=== PATIENT | male | born 1980 | race African-American/Black ===

== ENCOUNTER 2018-02-17 18:04 | Inpatient (IN) | payer MEDICARE, MEDICAID ==
[~2018-02-17 18:04] MED LIST: ISOVUE-370 76%-LOCM 1 ML ONE
--- NOTE | 2018-02-17 20:00 | PDOC.FPRHP ---
- History of Present Illness Chief Complaint: right cheek swelling History of Present Illness: 37 yo male with a pmhx of htn presents with a 2 day hx of right cheek/mandible pain and swelling. He said he woke 2 days ago and noticed pain in his cheek and over the course of two days the pain and swelling has worsened. He also notes fever to 104. He denies any new medications and doesn't think he was stung by anything. He does endorse having cavities. He doesn't have dental insurance. - Allergies/Adverse Reactions Allergies Allergy/AdvReac Type Severity Reaction Status Date / Time No Known Allergies Allergy Verified 02/17/18 19:46 - Home Medications Medication Instructions Recorded Confirmed Type Amoxicillin 500 mg PO TID 02/17/18 02/17/18 History Amoxicillin/Potassium Clav 1 tab PO Q12HR 02/17/18 02/17/18 History [Amox-Clav 875-125 mg Tablet] Lisinopril/Hydrochlorothiazide 1 tab PO QAM 02/17/18 02/17/18 History [Lisinopril-Hctz 10-12.5 mg Tab] Sertraline HCl 75 mg PO QAM 02/17/18 02/17/18 History traMADol HCl [Tramadol HCl] 50 mg PO Q4HR PRN 02/17/18 02/17/18 History traZODone HCl [Trazodone HCl] 75 mg PO QPM 02/17/18 02/17/18 History - History PMHx: HTN, depression, tobacco abuse, insomnia PSHx: none FHx: mom and dad have diabetes and hypertension Social: smoked 1pp; has smoked on and off for 15 years. - Review of Systems General: reports: fever/chills. denies: weight/appetite/sleep changes, night sweats, fatigue ENT: reports: other (right mandibular pain and swelling). denies: nasal congestion, rhinorrhea Respiratory: denies: cough Cardiovascular: denies: chest pain, palpitation, edema, paroxysmal nocturnal dyspnea, orthopnea Gastrointestinal: denies: nausea, vomiting, diarrhea, constipation, abdominal pain Genitourinary: denies: incontinence, dysuria Skin: reports: lesions (right cheek). denies: rashes, jaundice, itching Musculoskeletal: reports: pain, tenderness (right cheek) Neurological: denies: numbness, syncope, seizure, weakness Psychological: denies: anxiety, depression - Vital signs BP: HR: 74 RR: 18 Tmax: 98.5 Pox: 95% on RA Wt: 94kg - Physical Exam Constitutional: NAD, awake, alert and oriented, well developed HEENT: normocephalic and atraumatic, PERRLA, EOMI, grossly normal hearing, other (poor dentition; swelling of right cheek/mandible; tender to palpation) Neck: supple, no JVD, no thyromegaly Heart: RRR, normal S1/S2, no murmurs/rubs/gallops, pulses present, no edema Lungs: CTAB, no respiratory distress, good air movement, no rales/rhonchi, no wheezing, no retractions Abdomen: soft, non-tender, bowel sounds present, no masses/distention Musculoskeletal: normal structure, normal tone Neurological: no focal deficit, normal sensation Skin: good turgor, capillary refill <2 seconds Heme/Lymphatic: no purpura, no petechia Psychiatric: normal mood and affect FMR H&P: Results - Labs Result Diagrams: 02/17/18 22:06 02/17/18 22:06 - EKG Interpretation EKG: NSR FMR H&P: A/P - Problem List (1) Dental abscess Current Visit: Yes Status: Acute Code(s): K04.7 - PERIAPICAL ABSCESS WITHOUT SINUS (2) HTN (hypertension) Current Visit: Yes Status: Acute Code(s): I10 - ESSENTIAL (PRIMARY) HYPERTENSION (3) Depression Current Visit: Yes Status: Acute Code(s): F32.9 - MAJOR DEPRESSIVE DISORDER , SINGLE EPISODE, UNSPECIFIED (4) Insomnia Current Visit: Yes Status: Acute Code(s): G47.00 - INSOMNIA, UNSPECIFIED (5) Tobacco abuse Current Visit: Yes Status: Acute Code(s): Z72.0 - TOBACCO USE - Plan 37 yo male with pmhx of htn presents with a 2 day hx of facial pain and swelling in his right mandibular region, admitted for a dental abscess. 1.)Dental Abscess-Mr. Pickett was admitted to inpatient medical. He was provided with morphine and toradol prn pain. A facial CT with contrast was ordered. CBC, BMP and blood cultures were drawn. We started him on empiric vanc and zosyn for coverage (IV) as he is having difficulty opening his mouth. [facility] was consulted who reviewed the CT imaging and stated that he could follow-up with the patient in their clinic in the am. However, he doesn't have insurance, so we need to make sure [facility] will see him in their clinic. 2.)HTN, controlled. We will hold his home meds until he is better able to swallow. 3.)Depression, controlled. We will hold his home medications until he is more comfortable swallowing. 4.)Insomnia, controlled. We will hold for now until he is able to swallow better. FMR H&P: Upper Level - Plan Date/Time: 02/17/181957 IJoanne, PGY3, have evaluated this patient and agree with findings/plan as outlined by research intern resident. Pertinent changes/additions are listed here. This is a 37yo M w/ PMH multiple dental caries and HTN, presents w/ 2 day history of R cheek/jaw pain, fevers, chills, nausea. He states that he was suppose to get dental work done, however due to insurance, he hasn't been able to get in. Now having difficulty opening his jaw fully due to pain and swelling of cheek. Hasn't eaten anything today due to pain and swelling. Denies any SOB, difficulty swallowing, or any concerns of his airway. He was sent to the hospital after he saw his PCP and was directly admitted to [facility] for IV Antibiotics. He states that he had all of his vaccines as a child. PE: GEN: AOx4 in no acute distress. HEENT: multiple dental caries down to mandible and maxillary bone. Swelling and warmth R mandible, and mild swelling along R neck region. CV: RRR. No murmur. Resp: CTA bilaterally Abd: Non-tender to palpation A/P: 1) Dental abscess with concern for cellulitis and possible parotodits - IV Vancomycin and Zosyn, CT scan face and neck. NPo @ midnight. Consult [facility] in am pending what the CT scan results. Blood cx, CBC, CMP, amylase, Mump titers. 2) HTN - Labetolol IV, Hydralazine PRN. Hold home meds until more comfortable swallowing 3) Insomnia - Will hold Trazedone until more comfortable swallowing. 4) Depression - Hold Sertraline until more comfortable swallowing. Attending Addendum - Attending Addendum Date/Time: 02/17/18 [id number] I personally evaluated the patient and discussed the management with Dr. Catarino Cain on 02/17/18. I agree with the History, Examination, Assessment and Plan documented above with any addition or exceptions noted below. Patient with large mandibular dental abscess. Briefly discussed case with [facility] , they recommend pain control and treatment overnight with possible discharge home tomorrow for outpatient follow up. Transition to PO Augmentin in the morning.
[2018-02-17] MEDS ORDERED: Ondansetron HCl/PF 4 MG/2 ML Vial IVP PRN (20:36)
[2018-02-17] MEDS ORDERED: Mag-Al 1200 mg/1200 mg/30 ML UDCUP PO PRN (20:36)
[2018-02-17] MEDS ORDERED: Morphine 5 MG/ML SYRINGE SLOW IVP PRN (20:43)
[2018-02-17] MEDS ORDERED: Acetaminophen 650 MG in Premix Bag 1 BAG IVPB PRN (20:43)
[2018-02-17] MEDS ORDERED: cefTRIAXone\\ROCEPHIN 1 GM, Syringe 0.4 ML in Sterile Water 9.6 ML SLOW IVP SCH (21:00)
[2018-02-17] MEDS ORDERED: Vancomycin HCl 1 GM in Premix Bag 1 BAG IVPB SCH (21:00)
[2018-02-17] MEDS ORDERED: Clindamycin/D5W 600 MG in Premix Bag 1 BAG IVPB SCH (21:00)
[2018-02-17 21:14] VITALS: BMI 25.7
[2018-02-17] MEDS ORDERED: Lidocaine 2% Viscous Solution 20 ML, Aluminum & Magnesium Hydroxide 30 ML, Donnatal Eli... SSW SCH ×3 (21:30)
[2018-02-17] MEDS ORDERED: Morphine 5 MG/ML SYRINGE SLOW IVP SCH (21:30)
[2018-02-17] MEDS ORDERED: Nicotine 21 MG PATCH TD SCH (22:00)
[2018-02-17] MEDS: Sodium Chloride 0.9% 1,000 ML IV SCH (22:12)
[2018-02-17 22:19] LABS: #Eosinphils 0.1 thou/uL (0.0-0.7); #Lymphocytes 2.5 thou/uL (1.20-3.40); #Monocytes 0.9 thou/uL (0.11-0.59); #Neutrophils 6.7 thou/uL (1.40-6.50); %Basophils 0.1 % (0.0-1.0); %Lymphocytes 24.6 % (21.0-51.0); %Neutrophils 65.4 % (42.0-75.0); Mean Corpuscular HGB CONC 34.7 g/dL (32.0-36.0); Mean Corpuscular Hemoglobin 32.5 pg (27.0-31.0); Mean Corpuscular Volume 93.7 fl (80.0-94.0); Mean Platelet Volume 6.3 fL (7.4-10.4); Platelet Count 200 thou/uL (130-400); RBC Distribution Width 11.7 % (11.5-14.5); White Blood Cell (WBC) Count 10.2 thou/uL (4.8-10.8)
[2018-02-17 22:38] LABS: Anion Gap 11 mmol/L (10-20); BUN (Urea Nitrogen) 6 mg/dL (8.9-20.6); Calc. Creatinine Clearance 146 mL/min (70-130); Calcium 8.5 mg/dL (7.8-10.44); Carbon Dioxide 26 mmol/L (22-29); Chloride 102 mmol/L (98-107); Estimated GFR-MDRD Greater than 90; Glucose 88 mg/dL (70-105); Potassium 3.9 mmol/L (3.5-5.1); Sodium 135 mmol/L (136-145)
--- NOTE | 2018-02-17 22:42 | CT ---
CT MAXILLOFACIAL WITH CONTRAST: 02/17/18 HISTORY: 37-year-old male with right facial pain and swelling. FINDINGS: There is an approximately 25 x 15 x 10 mm high density mass within the inferior aspect of the right n tessa cavity, inferior to and displacing the right inferior turbinate. It is higher in density than river ne, and appears to contain peripheral enamel, although it is misshapen. It is not attached to adjacen t osseous structures. There is poor dentition, with multiple intraosseous lucencies around bilateral maxillary and right ma ndibular molar roots, at least some of which represent periapical cysts (radicular cysts). There is o ne small 0.5 cm osseous lucency around the root of the right first molar tooth associated with an oss eous defect of the adjacent cortical bone, resulting in soft tissue thickening of the right perimandi bular buccal space, consistent. There is extensive fat stranding representing edema, throughout the r ight buccal space, extending into the superficial subcutaneous fat and extending towards the right moreno bmandibular space. There is no focal drainable abscess fluid collection, but there are several pocket s of gas in the buccal spaces abutting the bilateral maxillary alveolar ridge. There is minimal mucos al thickening in the bilateral maxillary sinuses, but no air fluid levels. Otherwise, the rest of the maxillary sinuses, ethmoid air cells, sphenoid sinus, and frontal sinuses, are clear. Bilateral tymp anomastoid cavities are clear. IMPRESSION: 1. Dental abscess involving a right mandibular molar tooth, with cellulitis and edema in the rig ht buccal space, and edema extending into adjacent areas. No drainable macroscopic abscess fluid col lection. 2. Incidental finding of a right intranasal ectopic tooth. POS: [facility]
[2018-02-18] MEDS: Piperacillin/Tazobactam 4.5 GM in Sodium Chloride 0.9% 100 ML IVPB SCH ×2 (00:30→06:34)
[2018-02-18] MEDS: Ketorolac Tromethamine 30 MG/ML VIAL IVP SCH ×2 (00:50→06:34)
[2018-02-18 05:10] VITALS: TEMP 98.7
[2018-02-18 05:25] LABS: #Eosinphils 0.1 thou/uL (0.0-0.7); #Lymphocytes 2.6 thou/uL (1.20-3.40); #Monocytes 1.1 thou/uL (0.11-0.59); #Neutrophils 5.5 thou/uL (1.40-6.50); %Basophils 0.1 % (0.0-1.0); %Eosinophils 1.4 % (0.0-10.0); %Lymphocytes 27.7 % (21.0-51.0); %Monocytes 11.8 % (0.0-10.0); Hemoglobin 13.7 g/dL (14.0-18.0); Mean Corpuscular HGB CONC 33.7 g/dL (32.0-36.0); Mean Corpuscular Hemoglobin 31.8 pg (27.0-31.0); Mean Corpuscular Volume 94.3 fl (80.0-94.0); Mean Platelet Volume 6.4 fL (7.4-10.4); Platelet Count 199 thou/uL (130-400); RBC Distribution Width 11.7 % (11.5-14.5); White Blood Cell (WBC) Count 9.3 thou/uL (4.8-10.8)
[2018-02-18 05:34] LABS: Anion Gap 5 mmol/L (10-20); BUN (Urea Nitrogen) 6 mg/dL (8.9-20.6); Calc. Creatinine Clearance 111 mL/min (70-130); Calcium 8.5 mg/dL (7.8-10.44); Carbon Dioxide 32 mmol/L (22-29); Chloride 104 mmol/L (98-107); Estimated GFR-MDRD 83; Glucose 94 mg/dL (70-105); Potassium 3.6 mmol/L (3.5-5.1); Sodium 137 mmol/L (136-145)
[2018-02-18] MEDS: Sodium Chloride 0.9% 1,000 ML IV SCH (06:39)
--- NOTE | 2018-02-18 08:21 | PDOC.FM ---
- Subjective Subjective: Patient is doing okay this morning. He is anxious to get out of the hospital. His reports some mild-moderate pain. Otherwise, no complaints. - Objective Vital Signs & Weight: Vital Signs (12 hours) Temp Pulse Resp BP Pulse Ox 02/18/18 05:03 98.7 F 70 20 106/68 96 02/18/18 00:54 98.5 F 74 18 138/91 H 95 02/17/18 20:43 97 02/17/18 20:27 99.8 F H 75 18 128/86 97 Weight Weight 93.525 kg I&O: 02/17/18 02/18/18 02/19/18 06:59 06:59 06:59 Intake Total 300 Output Total 500 Balance -200 Result Diagrams: 02/18/18 05:06 02/18/18 05:06 Phys Exam - Physical Examination Constitutional: NAD HEENT: moist MMs significant jaw and face swelling of the R side, cannot open mouth wide due to pain Respiratory: no wheezing, no rales, clear to auscultation bilateral Cardiovascular: RRR Neurological: moves all 4 limbs Psychiatric: normal affect, A&O x 3 Dx/Plan (1) Dental abscess Code(s): K04.7 - PERIAPICAL ABSCESS WITHOUT SINUS Status: Acute (2) Depression Code(s): F32.9 - MAJOR DEPRESSIVE DISORDER, SINGLE EPISODE, UNSPECIFIED Status : Acute (3) HTN (hypertension) Code(s): I10 - ESSENTIAL (PRIMARY) HYPERTENSION Status: Acute (4) Insomnia Code(s): G47.00 - INSOMNIA, UNSPECIFIED Status: Acute (5) Tobacco abuse Code(s): Z72.0 - TOBACCO USE Status: Acute - Plan Plan: Dental Abscess - received a dose of vanc and zosyn - [facility] [place], Dr. Martinez to see in his office today - NPO for possible outpatient procedure today - patient pain controlled with IV toradol HTN, controlled - Held meds due to painful swallowing. - Will restart after procedure Depression, controlled - Hold home meds, restart after procedure Insomnia, controlled - Slept okay. Held home meds. Restart after procedure. Dispo: Discharge to Dr. Martinez's office for procedure.
[2018-02-18] MEDS ORDERED: Enoxaparin Sodium 40 MG/0.4 ML SYRINGE SC SCH (09:00)
[2018-02-18 09:24] VITALS: BP 108/68
--- NOTE | 2018-02-18 09:39 | ADD-PRG ---
DATE OF SERVICE: 02/18/2018 This is an addendum to the note of Dr. Elida Esqueda. Mr. Pickett is a pleasant 37-year-old black man who was admitted with a dental abscess of the right upp er mandible. Evidently he was seen in the ER by Oral Surgery who recommended seeing him in the offic e in the morning. Overnight, he was treated with antibiotics and pain control. By the next morning, he was able to leave to go to the office of Dr. Martinez for dental extraction. He had no complicatio ns while in the hospital. He did have a facial bone CAT scan. Final impression was a dental abscess involving a right mandibular molar tooth with cellulitis and edema in the right buccal space and john ma extending into the adjacent areas. No abscess was noted.
--- NOTE | 2018-02-18 20:22 | EKG ---
Test Reason : Blood Pressure : / mmHG Vent. Rate : 073 BPM Atrial Rate : 073 BPM P-R Int : 190 ms QRS Dur : 084 ms QT Int : 358 ms P-R-T Axes : 062 067 047 degrees QTc Int : 394 ms Normal sinus rhythm Normal ECG When compared with ECG of 10-AUG-2016 22:13, No significant change was found Confirmed by KATHARINE TATE, SBlayne ([id number]) on 02/18/2018 8:21:54 PM Referred By: JOHANNA Confirmed By:DR. Gerald ALCANTAR MD
== END 2018-02-18 09:25 | disposition home or self-care (01) | DRG 158 ==
LOC: T4-B 18:04
PROVIDERS: ADMIT Family Medicine; ATTEND Family Medicine
DX: K04.7 Periapical abscess without sinus (principal); K12.2 Cellulitis and abscess of mouth; F17.210 Nicotine dependence, cigarettes, uncomplicated; F32.9 Major depressive disorder, single episode, unspecified; I10 Essential (primary) hypertension; G47.00 Insomnia, unspecified
CPT/HCPCS: 36415; 70487; 80048; 85025; 87040; 93005; 93010; J2270; A4216; J0696; J1885; J2543; J3370; J3490; J7050

== ENCOUNTER 2018-09-10 10:31 | Emergency (ER) | payer MEDICARE, MEDICAID, OTHER ==
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
[2018-09-10] MEDS ORDERED: Ketorolac Tromethamine 30 MG/ML VIAL ONE ×2 (12:00→12:03)
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
== END 2018-09-10 12:47 | disposition home or self-care (01) ==
LOC: ERS 10:31
DX: S16.1XXA Strain of muscle, fascia and tendon at neck level, initial encounter (principal); I10 Essential (primary) hypertension; F17.210 Nicotine dependence, cigarettes, uncomplicated; Z79.899 Other long term (current) drug therapy; V89.2XXA Person injured in unspecified motor-vehicle accident, traffic, initial encounter
CPT/HCPCS: 70450; 71260; 72125; 74177; 96374; J1885

== ENCOUNTER 2018-09-12 13:30 | Emergency (ER) | payer MEDICARE, MEDICAID ==
[2018-09-12] MEDS ORDERED: Dexamethasone 10 MG/ML VIAL ONE (13:46)
== END 2018-09-12 14:02 | disposition home or self-care (01) ==
LOC: ERS 13:30
DX: S16.1XXA Strain of muscle, fascia and tendon at neck level, initial encounter (principal); I10 Essential (primary) hypertension; Z79.899 Other long term (current) drug therapy; V89.2XXA Person injured in unspecified motor-vehicle accident, traffic, initial encounter
CPT/HCPCS: 99283; J1100